=== PATIENT | male | born 1965 | race African-American/Black ===

== ENCOUNTER 2022-08-01 06:10 | Emergency (ER) | payer MEDICAID ==
[~2022-08-01] VITALS: Ht 175.3 cm; Wt 99.8 kg
[2022-08-01 06:10] VITALS: BP 166/105
[2022-08-01] MEDS ORDERED: KETOROLAC 30 MG/ML VIAL IVP ONE (06:20)
[2022-08-01] MEDS ORDERED: NACL 0.9% 1,000 ML IV ONE (06:20)
--- NOTE | 2022-08-01 06:24 | NUR ---
PT [facility] BLS. TAKEN TO BED 5
--- NOTE | 2022-08-01 06:40 | NUR ---
PT MOVED TO ER BED 1
[2022-08-01 06:58] VITALS: BP 166/105
[2022-08-01 07:29] LABS: BASOPHILS # (AUTO) 0.1 K/uL (0.00-0.22); BASOPHILS % (AUTO) 1.5 % (0.0-2.0); EOSINOPHILS # (AUTO) 0.2 K/uL (0-0.4); HEMATOCRIT 28.9 % (36-52); HEMOGLOBIN 9.4 g/dL (12.0-18.0); LYMPHOCYTES # (AUTO) 1.6 K/uL (2.0-11.5); LYMPHOCYTES % (AUTO) 28.4 % (20.5-51.1); MEAN CORPUSCULAR HEMOGLOBIN 25 pg (27-31); MEAN CORPUSCULAR HGB CONC 33 g/dL (33-37); MONOCYTES # (AUTO) 0.6 K/uL (0.8-1.0); MONOCYTES % (AUTO) 10.5 % (1.7-9.3); NEUTROPHILS # (AUTO) 3.1 K/uL (1.8-7.7); NEUTROPHILS % (AUTO) 56.6 % (42.2-75.2); PLATELET COUNT (AUTO) 393 K/uL (140-450); RED CELL DISTRIBUTION WIDTH 19.1 % (11.6-13.7); WHITE BLOOD COUNT (AUTO) 5.6 K/uL (4.8-10.8)
--- NOTE | 2022-08-01 08:00 | NUR ---
PT DOES NOT WANT TO BE BOTHERED, "TOO MANY PEOPLE COMING IN AND OUT" REFUSED MEDS
[2022-08-01 08:18] LABS: ALBUMIN 3.6 g/dL (3.4-5.0); ANION GAP 11.3 (8-16); CARBON DIOXIDE 28.2 mmol/L (21-32); CREATININE 1.5 mg/dL (0.6-1.3); POTASSIUM 4.5 mmol/L (3.5-5.1); TOTAL BILIRUBIN 0.3 mg/dL (0.0-1.0)
[2022-08-01] MEDS ORDERED: MUC600 PO (08:34)
[2022-08-01] MEDS ORDERED: PHEN100C4 PO (08:52)
--- NOTE | 2022-08-01 08:58 | NUR ---
PT DEMANDING BREAKFAST AND RX REFILLS FOR NORCOS. MD AT BEDSIDE TO EXPLAIN RESULTS AND DISPOSITION
--- NOTE | 2022-08-01 09:12 | NUR ---
Patient discharged with v/s stable. Written and verbal after care instructions given and explained. Patient alert, oriented and verbalized understanding of instructions. Ambulatory with to car. All questions addressed prior to discharge. ID band removed. Patient advised to follow up with PMD. Rx of DILANTIN given. Patient educated on indication of medication including possible reaction and side effects. Opportunity to ask questions provided and answered.
== END 2022-08-01 09:12 | disposition home or self-care (01) ==
LOC: MED 06:10
DX: R07.9 Chest pain, unspecified (principal); R05.9 Cough, unspecified; Z79.899 Other long term (current) drug therapy
CPT/HCPCS: 36415; 71045; 80053; 83880; 84484; 85025; 93005; 99285; G0482; Q0092